=== PATIENT | female | born 1990 | race African-American/Black ===

== ENCOUNTER → 2018-04-11 15:58 | Outpatient (CLI) | payer OTHER, SELFPAY ==
--- NOTE | 2018-04-11 16:06 | DI.US.S_ITS ---
PROCEDURE: US OB <= 14 WEEKS FETUS INDICATIONS: SIZE AND DATES OUTSIDE/PRIOR DATING DATA: Last menstrual period (LMP): 01/20/18. LMP-based estimated date of delivery (TERESA): 10/27/18. First dating scan (date and location): 04/11/18. Estimated date of delivery (TERESA) from first dating scan: 10/15/18. TECHNIQUE: Real-time scanning was performed of the fetus and maternal pelvic organs, with image documentation. Endovaginal scanning was also performed to better visualize the fetus and maternal ovaries. COMPARISON: None. FINDINGS: Embryo: Ammon-rump length measures 5.1 cm corresponding to 11 weeks 6 days. Heart rate measures 165 beats per minute. Measurement variability in dating: +/- 4 weeks by LMP, +/- 7 days by mean sac diameter (use before 6 weeks gestation if crown-rump length not able to be measured), +/- 5 days by crown-rump length (up to 8 weeks 6 days gestation), +/- 7 days by crown-rump length (up to 13 weeks 6 days gestation). Maternal organs: Ovaries within normal limits. Limited images through the kidneys demonstrate no hydronephrosis. IMPRESSION: A single living intrauterine with the estimated gestational age at 11 weeks 6 days corresponding to ultrasound TERESA 10/15/2018. Dictated by: Josesito Vasquez [facility] Interpreted: Leslie Reyes MD on 04/11/2018 at 16:57 Approved by: Leslie Reyes M.D. on 04/12/2018 at 9:10
== END ==
PROVIDERS: Visit Provider Family Medicine
DX: Z34.91 Encounter for supervision of normal pregnancy, unspecified, first trimester (principal); Z3A.11 11 weeks gestation of pregnancy
CPT/HCPCS: 76801

== ENCOUNTER → 2018-06-04 12:41 | Outpatient (CLI) | payer OTHER, SELFPAY ==
--- NOTE | 2018-06-04 | DI.US.S_ITS ---
PROCEDURE: US OB >= 14 WEEKS FETUS INDICATIONS: ANATOMY SCAN OUTSIDE/PRIOR DATING DATA: Last menstrual period (LMP): 01/20/18. LMP-based estimated date of delivery (TERESA): 10/27/18. First dating scan (date and location): 04/11/18. Estimated date of delivery (TERESA) from first dating scan: 10/25/18. TECHNIQUE: Real-time scanning was performed of the fetus, with image documentation and biometric measurements. Endovaginal scanning: No COMPARISON: [facility], OB <= 14 WEEKS FETUS, 04/11/2018, 16:32. FINDINGS: General: A single living intrauterine gestation is present. Presentation: Vertex. Placenta: Placental position is posterior, without previa. Amniotic fluid index: 10.1 cm, normal range is 5-24 cm. heart rate: 152 beats per minute. Maternal cervical canal: 4.1 cm long. Normal lower limit is 2.5 cm. biometrics: Biparietal diameter: 20 weeks 2 days Head circumference: 20 weeks 1 day Abdominal circumference: 21 weeks 4 days Femur length: 19 weeks 2 days Estimated gestational age from initial scan: 19 weeks 4 days Composite gestational age from present scan: 20 weeks 2 days Estimated weight and percentile: 355 g; 90th percentile Measurement variability for biometric dating: +/- 7 days from 14 weeks to 15 weeks 6 days gestation, +/- 10 days from 16 weeks to 21 weeks 6 days gestation, +/- 2 weeks from 22 weeks to 27 weeks 6 days gestation, +/- 3 weeks for 28 weeks gestation or later. weight reference: 4500 g or EFW >90/95% is considered macrosomia or large for gestational age. EFW <10% is small for gestational age. EFW 5% or less is considered intra-uterine growth restriction. Anatomic survey: Neuro: Ventricles are non-dilated at less than 10 mm. Cisterna magna is normal at 3-11 mm. Cerebellum is normal in size and morphology. Nuchal skin fold: Normal at less than 6 mm between 14-21 weeks gestational age. Face: Nose and lips, facial profile are normal. Spine: No evidence for spina bifida. Heart: 4-chambered heart is present, with normal ventricular outflow tracts. Diaphragm: Diaphragm is intact. Stomach: Left-sided stomach is present. Kidneys: No hydronephrosis. Normal is less than 5 mm in 2nd trimester, less than 7 mm in 3rd trimester. Cord: 2-vessel cord has orthotopic insertion. Bladder: Normal in size. Extremities: All 4 extremities identified. IMPRESSION: 1. Single living IUP we demonstrated; the interval growth is normal. 2. Two-vessel cord is present; otherwise normal anatomic survey. Dictated by: Josesito Vasquez [facility] Interpreted: Leslie Reyes MD on 06/04/2018 at 15:51 Approved by: Leslie Reyes M.D. on 06/04/2018 at 18:40
== END ==
PROVIDERS: PCP Family Medicine; Visit Provider Family Medicine
DX: Z36.89 Encounter for other specified antenatal screening (principal); Z3A.20 20 weeks gestation of pregnancy
CPT/HCPCS: 76811

== ENCOUNTER → 2018-09-10 11:37 | Outpatient (CLI) | payer OTHER, SELFPAY ==
--- NOTE | 2018-09-10 | DI.US.S_ITS ---
PROCEDURE: US OB LIMITED INDICATIONS: SIZE GREATER THAN DATES OUTSIDE/PRIOR DATING DATA: Last menstrual period (LMP): 01/20/18. LMP-based estimated date of delivery (TERESA): 10/27/18. First dating scan (date and location): 04/11/18. Estimated date of delivery (TERESA) from first dating scan: 10/25/18. TECHNIQUE: Real-time scanning was performed of the fetus, with image documentation and biometric measurements. COMPARISON: [facility], OB <= 14 WEEKS FETUS, 04/11/2018, 16:32. [facility], OB >= 14 WEEKS FETUS, 06/04/2018, 13:13. FINDINGS: General: A single living intrauterine gestation is present. Presentation: Cephalic Placenta: Placental position is posterior Amniotic fluid index: 18.8 cm, normal range is 5-24 cm. heart rate: 133 beats per minute. Maternal cervical canal: 4.2 cm long. biometrics: Biparietal diameter: 8.8 cm, 35 weeks 4 days Head circumference: 31.6 cm, 35 weeks 4 days Abdominal circumference: 32.0 cm, 36 weeks 0 days Femur length: 7.0 cm, 35 weeks 5 days Estimated gestational age from initial scan: 33 weeks 4 days Composite gestational age from present scan: 35 weeks 5 days Estimated weight and percentile: 2768 g (95th percentile) Measurement variability for biometric dating: +/- 7 days from 14 weeks to 15 weeks 6 days gestation, +/- 10 days from 16 weeks to 21 weeks 6 days gestation, +/- 2 weeks from 22 weeks to 27 weeks 6 days gestation, +/- 3 weeks for 28 weeks gestation or later. weight reference: 4500 g or EFW >90/95% is considered macrosomia or large for gestational age. EFW <10% is small for gestational age. EFW 5% or less is considered intra-uterine growth restriction. Other: Not applicable. IMPRESSION: 1. Single live intrauterine at 35 weeks 5 days is discordant with the dates from the previous ultrasound dated 10 days and discordant from the initial ultrasound by approximately 15 days. 2. Estimated weight is within the 95th percentile. Please correlate clinically for possible developing macrosomia. Dictated by: Mike Post M.D. on 09/10/2018 at 14:53 Approved by: Mike Post M.D. on 09/10/2018 at 14:56
== END ==
PROVIDERS: PCP Family Medicine; Visit Provider Family Medicine
DX: O36.63X0 Maternal care for excessive fetal growth, third trimester, not applicable or unspecified (principal); Z3A.35 35 weeks gestation of pregnancy
CPT/HCPCS: 76815

== ENCOUNTER 2018-09-24 12:51 | Outpatient (CLI) | payer OTHER, SELFPAY | END 2018-09-24 13:30 | disposition home or self-care (01) | LOC: OB 09-25 14:07 | PROVIDERS: PCP Family Medicine; Visit Provider Family Medicine | DX: Z34.83 Encounter for supervision of other normal pregnancy, third trimester (principal); Z3A.35 35 weeks gestation of pregnancy | CPT/HCPCS: 59025; 87081; G0378; G0379 ==

== ENCOUNTER → 2018-09-24 17:49 | Outpatient (ROUT) | payer OTHER, SELFPAY | PROVIDERS: PCP Family Medicine; Visit Provider Family Medicine | DX: Z34.83 Encounter for supervision of other normal pregnancy, third trimester (principal) | CPT/HCPCS: 87081 ==

== ENCOUNTER 2018-10-02 12:51 | Outpatient (CLI) | payer OTHER, SELFPAY | END 2018-10-02 13:24 | disposition home or self-care (01) | LOC: LABOR 13:26 → OB 10-08 12:06 | PROVIDERS: Family Provider Family Medicine; PCP Family Medicine; Visit Provider Family Medicine | DX: O69.89X0 Labor and delivery complicated by other cord complications, not applicable or unspecified (principal); Z3A.36 36 weeks gestation of pregnancy | CPT/HCPCS: 59025; G0378; G0379 ==

== ENCOUNTER 2018-10-08 12:52 | Outpatient (CLI) | payer OTHER, SELFPAY | END 2018-10-08 13:39 | disposition home or self-care (01) | LOC: LABOR 13:35 → OB 10-15 08:09 | PROVIDERS: Family Provider Family Medicine; PCP Family Medicine; Visit Provider Family Medicine | DX: O62.2 Other uterine inertia (principal); Z3A.38 38 weeks gestation of pregnancy | CPT/HCPCS: 59025; G0378; G0379 ==

== ENCOUNTER → 2018-10-15 12:02 | Outpatient (CLI) | payer OTHER, SELFPAY ==
--- NOTE | 2018-10-15 12:03 | DI.US.S_ITS ---
PROCEDURE: US OB LIMITED INDICATIONS: LGA OUTSIDE/PRIOR DATING DATA: Last menstrual period (LMP): 01/20/18. LMP-based estimated date of delivery (TERESA): 10/27/18. First dating scan (date and location): 04/11/18. Estimated date of delivery (TERESA) from first dating scan: 10/25/18. TECHNIQUE: Real-time scanning was performed of the fetus, with image documentation and biometric measurements. COMPARISON: [facility], OB >= 14 WEEKS FETUS, 06/04/2018, 13:13. [facility], OB <= 14 WEEKS FETUS, 04/11/2018, 16:32. [facility], OB LIMITED, 09/10/2018, 12:30. FINDINGS: General: A single live intrauterine gestation is present. Presentation: Vertex. Placenta: Placental position is fundal, without previa. Amniotic fluid index: 8.7 cm, normal range is 5-24 cm. heart rate: 131 beats per minute. Maternal cervical canal: Not seen. biometrics: Biparietal diameter: 9.6 cm equals 39 weeks 0 days Head circumference: 34.8 cm equals 40 weeks 2 days Abdominal circumference: 35.4 cm equals 39 weeks 2 days Femur length: 7.6 cm equals 39 weeks 0 days Estimated gestational age from initial scan: 38 weeks 4 days Composite gestational age from present scan: 39 weeks 3 days Estimated weight and percentile: 3746 g, 82nd percentile Measurement variability for biometric dating: +/- 7 days from 14 weeks to 15 weeks 6 days gestation, +/- 10 days from 16 weeks to 21 weeks 6 days gestation, +/- 2 weeks from 22 weeks to 27 weeks 6 days gestation, +/- 3 weeks for 28 weeks gestation or later. weight reference: 4500 g or EFW >90/95% is considered macrosomia or large for gestational age. EFW <10% is small for gestational age. EFW 5% or less is considered intra-uterine growth restriction. Other: Not applicable. IMPRESSION: Normal interval growth when compared to the prior ultrasound examination. The fetus is estimated to weigh 3746 g, 82nd percentile. Dictated by: Everette Warner M.D. on 10/15/2018 at 12:07 Approved by: Everette Warner M.D. on 10/15/2018 at 12:09
== END ==
PROVIDERS: Family Provider Family Medicine; PCP Family Medicine; Visit Provider Family Medicine
DX: O26.843 Uterine size-date discrepancy, third trimester (principal)
CPT/HCPCS: 76815

== ENCOUNTER 2018-10-15 12:04 | Outpatient (CLI) | payer OTHER, SELFPAY | END 2018-10-15 13:25 | disposition home or self-care (01) | LOC: OB 10-17 15:12 | PROVIDERS: Family Provider Family Medicine; PCP Family Medicine; Visit Provider Family Medicine | DX: O43.893 Other placental disorders, third trimester (principal); Z3A.38 38 weeks gestation of pregnancy | CPT/HCPCS: 59025; 76815; G0378; G0379 ==

== ENCOUNTER 2018-10-21 12:43 | Outpatient (CLI) | payer OTHER, SELFPAY | END 2018-10-21 13:31 | disposition home or self-care (01) | LOC: LABOR 13:26 → OB 10-22 14:36 | PROVIDERS: Family Provider Family Medicine; PCP Family Medicine; Visit Provider Family Medicine | DX: O43.893 Other placental disorders, third trimester (principal); Z3A.39 39 weeks gestation of pregnancy | CPT/HCPCS: 59025; G0378; G0379 ==

== ENCOUNTER 2018-10-25 09:47 | Outpatient (CLI) | payer OTHER, SELFPAY ==
--- NOTE | 2018-10-25 10:03 | DI.US.S_ITS ---
PROCEDURE: US OB LIMITED INDICATIONS: POST DATES OUTSIDE/PRIOR DATING DATA: Last menstrual period (LMP): 01/23/2018. LMP-based estimated date of delivery (TERESA): 10/27/2018. First dating scan (date and location): 04/11/2018. Estimated date of delivery (TERESA) from first dating scan: 10/25/2018. TECHNIQUE: Real-time scanning was performed of the fetus, with image documentation and biometric measurements. Endovaginal scanning: Not performed COMPARISON: [facility], OB <= 14 WEEKS FETUS, 04/11/2018, 16:32. [facility], OB LIMITED, 09/10/2018, 12:30. [facility] OB >= 14 WEEKS FETUS, 06/04/2018, 13:13. [facility], OB LIMITED, 10/15/2018, 12:25. FINDINGS: General: A single living intrauterine gestation is present. Presentation: Vertex. Placenta: Placental position is fundal, without previa. Amniotic fluid index: 11 cm, normal range is 5-24 cm. 5.1 cm for the largest pocket/ heart rate: 137 beats per minute. Maternal cervical canal: Not visualized. biometrics: Estimated gestational age from initial scan: 40 weeks 0 day. IMPRESSION: 1. A single living intrauterine gestation with an estimated gestational age of 40 weeks 0 day, corresponding to ultrasound TERESA 10/25/2018-initial ultrasound. 2. HEATH 11 cm with the largest pocket 5.1 cm. Dictated by: Leslie Reyes M.D. on 10/25/2018 at 11:50 Approved by: Leslie Reyes M.D. on 10/25/2018 at 11:55
== END 2018-10-25 11:22 | disposition home or self-care (01) ==
LOC: LABOR 10:18 → OB 10-28 14:53
PROVIDERS: PCP Family Medicine; Visit Provider Family Medicine
DX: O48.0 Post-term pregnancy (principal); Z3A.40 40 weeks gestation of pregnancy
CPT/HCPCS: 59025; 76815; G0378; G0379

== ENCOUNTER 2018-10-27 18:24 | Observation (INO) | payer OTHER, SELFPAY ==
[2018-10-27 19:46] VITALS: BP 135/80
[2018-10-27] MEDS: LACTATED RINGERS 1,000 ML 100 ML IV (19:57)
[2018-10-27 20:41] LABS: Add Manual Diff / Slide Review NO; Basophils Absolute Auto 0 /uL (0-100); Basophils Percent Auto 0.3 % (0-2); Eosinophils Absolute Auto 0 /uL (0-450); Eosinophils Percent Auto 0.5 % (2-4); Hematocrit 36.1 % (36-46); Hemoglobin 12.1 g/dL (12.0-16.0); Lymphocytes Absolute Auto 2700 /uL (1100-4500); Lymphocytes Percent Auto 37.1 % (25-40); Mean Corpuscular HGB Conc 33.6 % (30-36); Mean Corpuscular Hemoglobin 31.5 PG (26-34); Mean Corpuscular Volume 93.6 fL (80-100); Monocytes Absolute Auto 700 /uL (0-900); Monocytes Percent Auto 9.9 % (3-14); Neutrophils Absolute Auto 3900 /uL (1500-7000); Neutrophils Percent Auto 52.2 % (50-75); Platelet Count 343 X10^3/uL (150-400); Red Blood Cell Count 3.86 X10^6/uL (4.0-5.2); Red Cell Distribution Width 15.2 % (11.6-14.8); White Blood Cell Count 7.4 X10^3/uL (4.5-11.0)
== END 2018-10-27 22:00 | disposition home or self-care (01) ==
PROVIDERS: Admitting Provider Family Medicine; PCP Family Medicine; Visit Provider Family Medicine
DX: O26.893 Other specified pregnancy related conditions, third trimester (principal); Z3A.40 40 weeks gestation of pregnancy
CPT/HCPCS: 59050; 85025; 86850; 86900; 86901; 96360; G0378; G0379

== ENCOUNTER 2018-10-28 06:18 | Inpatient (IN) | payer OTHER, SELFPAY ==
[2018-10-28 06:42] VITALS: BP 139/72
[2018-10-28 06:51] LABS: Add Manual Diff / Slide Review NO; Basophils Absolute Auto 0 /uL (0-100); Basophils Percent Auto 0.5 % (0-2); Eosinophils Absolute Auto 0 /uL (0-450); Eosinophils Percent Auto 0.7 % (2-4); Hematocrit 35.9 % (36-46); Hemoglobin 12.6 g/dL (12.0-16.0); Lymphocytes Absolute Auto 2800 /uL (1100-4500); Lymphocytes Percent Auto 40.1 % (25-40); Mean Corpuscular HGB Conc 35.1 % (30-36); Mean Corpuscular Hemoglobin 32.5 PG (26-34); Mean Corpuscular Volume 92.7 fL (80-100); Monocytes Absolute Auto 600 /uL (0-900); Monocytes Percent Auto 8.8 % (3-14); Neutrophils Absolute Auto 3500 /uL (1500-7000); Neutrophils Percent Auto 49.9 % (50-75); Platelet Count 317 X10^3/uL (150-400); Red Blood Cell Count 3.87 X10^6/uL (4.0-5.2); Red Cell Distribution Width 15.2 % (11.6-14.8); White Blood Cell Count 7.1 X10^3/uL (4.5-11.0)
[2018-10-28] MEDS: LACTATED RINGERS 1,000 ML 100 ML IV (07:03)
[2018-10-28] MEDS: OXYTOCIN PREMIX 30 UNIT/500 ML PLAST..BAG IV (07:03)
--- NOTE | 2018-10-28 13:08 | PM.OBPNLAB ---
Date/Time Date Patient Seen: 10/28/18 Time Patient Seen: 13:08 Pain Control Pain control: tolerating well Pelvic Exam Dilation (cm): 4 Effacement (%): 80 station: 0 Amniotic membrane status: Ruptured Comments: 822 AROM, clear fluid Contractions Contractions on admission: regular Monitor mode: External Pitocin rate (mU/min): 17 Contraction frequency (min): 4 Contraction duration (min): 30 Contraction pattern: Irregular Contraction phase: Resting Contraction intensity: Moderate Status status: Category l Heart Rate Baseline: 130 Monitor Accelerations: Present Monitor Decelerations: Variable Monitor Variability: Moderate Assessment and Plan Assessment: active labor Plan: continuous present management Comments: OP/OT per ultrasound positional changes
--- NOTE | 2018-10-28 17:25 | PM.OBPNLAB ---
Pelvic Exam Dilation (cm): 4 Effacement (%): 80 station: 0 Amniotic membrane status: Ruptured Contractions Monitor mode: External Contraction frequency (min): 4 Contraction pattern: Irregular Contraction phase: Resting Contraction intensity: Moderate Status status: Category l
--- NOTE | 2018-10-28 17:26 | PM.OBPNLAB ---
Date/Time Date Patient Seen: 10/28/18 Time Patient Seen: 17:26 Pain Control Pain control: epidural Comments: working well. placed at 230 Pelvic Exam Dilation (cm): 10 Effacement (%): 100 station: +1 Amniotic membrane status: Ruptured Comments: bloody show Contractions Contractions on admission: regular Monitor mode: External Pitocin rate (mU/min): 19 Contraction frequency (min): 4 Contraction pattern: Regular Contraction phase: Resting Contraction intensity: Moderate Status status: Category l Heart Rate Baseline: 140 Monitor Accelerations: Present Monitor Decelerations: Variable Monitor Variability: Moderate Assessment and Plan Assessment: active labor Plan: continuous present management Comments: begin pushing
--- NOTE | 2018-10-28 19:28 | P.PCNOB_ITS ---
Delivery date: 10/28/18 Intrapartal events: None Cervical ripening method: none Induction method: per pitocin protocol Delivery augmentation: rupture of membranes Delivery monitor: external FHT and external uterine Route of delivery: L&D Laceration Description: Vaginal - 1st Degree Delivery repair: chromic Estimated blood loss (mL): 270 Anesthesia type: Epidural Complications: none Narrative: Identifying data: 28-year-old at 40 and 3 7 weeks estimated gestational age based on an EDC of 10/25/2018 based on 1st trimester ultrasound and LMP is brought to Labor and delivery for Pitocin induction due to presence of a 2 vessel cord. Patient came on October 27 for Cytotec cervical ripening but Chavez score was favorable for induction so she was sent home and brought back the next day. Her was otherwise uncomplicated other than suspected macrosomia and 2 vessel cord. She was monitored with and STs once weekly and fluid levels were monitored. She did not have testing because her insurance did not cover this. She is GBS negative and Rh positive and received her Tdap and her flu shot. Stage I and lasted 3 hours and 30 minutes Patient was 2-3 cm dilated 75% effaced and -1 station on presentation. Pitocin was started. Maximum Pitocin with 17 milliunits. Artificial rupture membranes was done at 8:23 a.m. which was 9 hours and 56 minutes prior to delivery. There was clear fluid. There was approximately 3 vaginal exams before she became complete. External tocometer was used throughout this phase. Initially ultrasound was performed and baby was right occiput posterior or occiput transverse. Category 1 tracing throughout stage I. heart monitor was in 140s with accelerations and moderate variability with only occasional mild variable deceleration. There was some coupling of contractions. Patient was placed in positional changes to help with this. Patient received an epidural at 2:30 p.m. that provided excellent analgesia throughout this stage. Patient was placed in pain at ball position and rotated after epidural placed. She was noted to be 4-1/2 to 5 cm and 100% effaced at 3:15 p.m. and then when I examined her at 3:33 p.m. she was complete with baby at +1 station. Stage II: Lasted 44 minutes Patient began pushing and was a very excellent pusher with effective pushing bring the baby down. External tocometer was used. Patient was able to feel the contractions but not have pain and not have significant perineal pain. Contractions were every 2-3 minutes. External heart monitor was used throughout this stage showing category 1 tracing with baseline 130s with acce lerations moderate variability and occasional mild variable deceleration. There was significant amount of bloody show. Fluid had continued to be clear. Patient brought the baby's head down P and allowed baby to sit on the perineum. Baby was delivered in JERZY presentation and a nuchal cord was noted. This was too tight to sleep over the head and so was clamped and cut on the perineum. Anterior and posterior shoulders were delivered and then with some difficulty the abdomen was delivered. Baby was placed on mom's chest. Baby was vigorous. Baby's Apgars were 9 at 1 minute and 9 at 5 minutes. Stage III: Lasted 3 minutes Normal spontaneous vaginal delivery of an intact minimally calcified placenta. There is central cord insertion. There was a 2 vessel cord with 1 artery and 1 vein as expected. Amniotic membranes were intact and uterus was firm. Pitocin was run in after placenta delivered. There were no vaginal sidewall tears. Cervix was at the introitus. This was easily pushed back. There were no cervical lacerations. There was a very mild non bleeding periurethral skid siri that was not repaired. There is a very small laceration 1st degree vaginal just inside the vagina that was repaired with 3 0 chromic in a usual fashion. Estimated blood loss was 270 cc Epidural was discontinued. At the time this dictation both mom and baby are in stable condition Plan for aftercare: Routine care
--- NOTE | 2018-10-28 19:28 | PM.OBHP.1 ---
OB HPI History of Present Condition Chief complaint: EVALUATION OF LABOR Narrative: Adele Marcos is a 28 year old female who presents to Labor and delivery for scheduled induction for 2 vessel cord and being term. She is 40 and 3 7 weeks estimated gestational age. Patient's was complicated by a 2 vessel cord and no other problems. She had a total weight gain of 57 lb. Blood pressures were in the 110-120 6/60 2-74 Serology O positive, antibody screen negative, rubella immune Group B strep is -528 19, glucose tolerance test was 122, hemoglobin A1c was done due to the size of baby and this was normal. Chlamydia gonorrhea negative hemoglobin 11.5 hepatitis-C hepatitis B syphilis all negative patient received Tdap 08/06/2018 and flu shot 05/06/2018 Past Ob history: This is her 1st Past medical history: Unremarkable Current medications: vitamins Allergies: No known drug allergies Past surgical history: Unremarkable Healthy behavior: Does not use alcohol, tobacco or recreational drugs Social history: Patient is . 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 Her is in the . They have 2 dogs. Family history: Unremarkable Evaluation Evaluation Laboratory results: Laboratory Tests 10/28/18 10/28/18 06:40 06:40 WBC 7.1 RBC 3.87 L Hgb 12.6 Hct 35.9 L MCV 92.7 MCH 32.5 MCHC 35.1 RDW 15.2 H Plt Count 317 Neut % (Auto) 49.9 L Lymph % (Auto) 40.1 H Yancey % (Auto) 8.8 Eos % (Auto) 0.7 L Baso % (Auto) 0.5 Neut # (Auto) 3500 Lymph # (Auto) 2800 Yancey # (Auto) 600 Eos # (Auto) 0 Baso # (Auto) 0 Blood Type O Positive Antibody Screen Negative [facility] Social History Smoking Status: Never smoker Social History Smoking Status: Never smoker Meds Home Medications Medication Instructions Recorded Confirmed Type No Known Home Medications 10/27/18 10/28/18 History Allergies Allergy/AdvReac Type Severity Reaction Status Date / Time No Known Drug Allergies Allergy Verified 10/27/18 19:31 Review of Systems Review of Systems No bleeding, no leaking, no abdominal pain or headaches. Patient is having regular contractions but they are not significantly painful All systems reviewed & are unremarkable except as noted in HPI and below Exam Narrative Exam Narrative: Afebrile vital signs are stable Eeg and he unremarkable Neck is supple without adenopathy Chest clear to auscultation without wheezes rhonchi or crackles For: Regular rate and rhythm without murmur Abdomen: Positive bowel sounds, soft, nontender, vertex fetus with estimated weight 8-1/2 to 9 lb Extremities: No edema, DTRs are intact Objective Labs Result Diagrams: 10/28/18 06:40 Labs: Laboratory Results - last 24 hr 10/28/18 10/28/18 06:40 06:40 WBC 7.1 RBC 3.87 L Hgb 12.6 Hct 35.9 L MCV 92.7 MCH 32.5 MCHC 35.1 RDW 15.2 H Plt Count 317 Neut % (Auto) 49.9 L Lymph % (Auto) 40.1 H Yancey % (Auto) 8.8 Eos % (Auto) 0.7 L Baso % (Auto) 0.5 Neut # (Auto) 3500 Lymph # (Auto) 2800 Yancey # (Auto) 600 Eos # (Auto) 0 Baso # (Auto) 0 Blood Type O Positive Antibody Screen Negative Assessment and Plan Assessment and Plan Assessment and Plan narrative: 28-year-old at term, 40 and 3 7 weeks estimated gestational age with a 2 vessel cord and suspected large baby. Will proceed with artificial rupture membranes and continue with Pitocin and epidural if request. GBS negative O positive Glucose tolerance test 122 S post Tdap Expectant management
--- NOTE | 2018-10-28 19:32 | P.HPOB_ITS ---
OB HPI History of Present Condition Chief complaint: EVALUATION OF LABOR Narrative: Adele Marcos is a 28 year old female who presents to Labor and delivery for scheduled induction for 2 vessel cord and being term. She is 40 and 3 7 weeks estimated gestational age. Patient's was complicated by a 2 vessel cord and no other problems. She had a total weight gain of 57 lb. Blood pressures were in the 110-120 6/60 2-74 Serology O positive, antibody screen negative, rubella immune Group B strep is -528 19, glucose tolerance test was 122, hemoglobin A1c was done due to the size of baby and this was normal. Chlamydia gonorrhea negative hemoglobin 11.5 hepatitis-C hepatitis B syphilis all negative patient received Tdap 08/06/2018 and flu shot 05/06/2018 Past Ob history: This is her 1st Past medical history: Unremarkable Current medications: vitamins Allergies: No known drug allergies Past surgical history: Unremarkable Healthy behavior: Does not use alcohol, tobacco or recreational drugs Social history: Patient is . 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 Her is in the . They have 2 dogs. Family history: Unremarkable Evaluation Evaluation Laboratory results: Laboratory Tests 10/28/18 10/28/18 06:40 06:40 WBC 7.1 RBC 3.87 L Hgb 12.6 Hct 35.9 L MCV 92.7 MCH 32.5 MCHC 35.1 RDW 15.2 H Plt Count 317 Neut % (Auto) 49.9 L Lymph % (Auto) 40.1 H [place] % (Auto) 8.8 Eos % (Auto) 0.7 L Baso % (Auto) 0.5 Neut # (Auto) 3500 Lymph # (Auto) 2800 [place] # (Auto) 600 Eos # (Auto) 0 Baso # (Auto) 0 Blood Type O Positive Antibody Screen Negative [facility] Social History Smoking Status: Never smoker Social History Smoking Status: Never smoker Meds Home Medications Medication Instructions Recorded Confirmed Type No Known Home Medications 10/27/18 10/28/18 History Allergies Allergy/AdvReac Type Severity Reaction Status Date / Time No Known Drug Allergies Allergy Verified 10/27/18 19:31 Review of Systems Review of Systems No bleeding, no leaking, no abdominal pain or headaches. Patient is having regular contractions but they are not significantly painful All systems reviewed & are unremarkable except as noted in HPI and below Exam Narrative Exam Narrative: Afebrile vital signs are stable Eeg and he unremarkable Neck is supple without adenopathy Chest clear to auscultation without wheezes rhonchi or crackles For: Regular rate and rhythm without murmur Abdomen: Positive bowel sounds, soft, nontender, vertex fetus with estimated weight 8-1/2 to 9 lb Extremities: No edema, DTRs are intact Objective Labs Result Diagrams: 10/28/18 06:40 Labs: Laboratory Results - last 24 hr 10/28/18 10/28/18 06:40 06:40 WBC 7.1 RBC 3.87 L Hgb 12.6 Hct 35.9 L MCV 92.7 MCH 32.5 MCHC 35.1 RDW 15.2 H Plt Count 317 Neut % (Auto) 49.9 L Lymph % (Auto) 40.1 H [place] % (Auto) 8.8 Eos % (Auto) 0.7 L Baso % (Auto) 0.5 Neut # (Auto) 3500 Lymph # (Auto) 2800 [place] # (Auto) 600 Eos # (Auto) 0 Baso # (Auto) 0 Blood Type O Positive Antibody Screen Negative Assessment and Plan Assessment and Plan Assessment and Plan narrative: 28-year-old at term, 40 and 3 7 weeks estimated gestational age with a 2 vessel cord and suspected large baby. Will proceed with artificial rupture membranes and continue with Pitocin and epidural if request. GBS negative O positive Glucose tolerance test 122 S post Tdap Expectant management
[2018-10-29 06:53] LABS: Hematocrit 35.6 % (36-46); Hemoglobin 11.9 g/dL (12.0-16.0)
[2018-10-29] MEDS: PRENATAL VIT,CALC/IRON/FOLIC 1 TABLET 1 TAB PO (08:32)
[2018-10-29] MEDS: DOCUSATE 250 MG CAPSULE PO (08:32)
--- NOTE | 2018-10-29 13:36 | P.DS_ITS ---
Discharge Providers Date of admission: 10/28/18 06:18 Discharge Date: 10/29/18 Primary care physician: Anika Jean MD Consults: 10/28/18 19:12 Consult to Loss Prevention Investigator Routine Comment: Discharge provider: Anika Jean MD Summary Time Spent with Patient Total time spent providing and/or coordinating discharge services: 30 minutes Patient underwent induction due to 2 vessel cord at 40 weeks and 3 7 days gestation. Patient had an unremarkable other than complication and 2 vessel cord. Patient had unremarkable normal spontaneous vaginal delivery. Patient did well . There were no complications. She was discharged home on day 1.. Follow up in the clinic in 2 weeks. Discharge medications vitamins, Colace as needed, Motrin as needed routine discharge instructions discussed. Discussed signs symptoms of infection, bleeding, breast feeding Objective Labs Result Diagrams: 10/29/18 06:34 Labs: Laboratory Results - last 24 hr 10/29/18 06:34 Hgb 11.9 L Hct 35.6 L Exam Vital Signs (past 8 hours): Alert and oriented no apparent distress. Some elevated blood pressures last night but have been normal in 20 over 70s 130/82 today. HEENT is unremarkable Chest clear to auscultation without wheezes rhonchi or crackles Cor: Regular rate and rhythm without any murmur Abdomen: Positive bowel sounds, soft, nontender, uterus firm and well below the umbilicus with no tenderness Extremities: No edema, DTRs trace bilaterally at the patella Discharge Plan Discharge Plan Patient Disposition: Home Discharge Med Rec/Prescriptions Prescriptions: New ibuprofen 600 mg Tablet 600 mg PO Q6HR PRN (Reason: Pain, Mild (1-3)) Qty: 30 RF: 0 docusate sodium 250 mg Capsule 250 mg PO DAILY PRN (Reason: constipation) Qty: 30 RF: 0 No Action No Known Home Medications RF: 0 Follow up/Referrals: Anika Jean MD [Primary Care Provider] - Provider Discharge Instructions Diet: Diet as Tolerated Diet comment: S tolerated Activity: Pelvic rest, no heavy lifting Discharge Data Primary Care Provider: Anika Jean Attending Provider: Anika Jean Admit Date/Time: 10/28/18 06:18
[2018-10-29 14:26] VITALS: BP 132/82; PULSE 98; RESP 16; TEMP 36.6
[2018-10-29] MEDS: IBUPROFEN 600 MG TABLET PO (15:32)
== END 2018-10-29 16:20 | disposition home or self-care (01) | DRG 807 ==
PROVIDERS: Admitting Provider Family Medicine; Family Provider Family Medicine; PCP Family Medicine; Visit Provider Family Medicine
DX: O43.893 Other placental disorders, third trimester (principal); Z37.0 Single live birth; Z3A.40 40 weeks gestation of pregnancy; O69.81X0 Labor and delivery complicated by cord around neck, without compression, not applicable or unspecified; O70.0 First degree perineal laceration during delivery
CPT/HCPCS: 36415; 59050; 85014; 85018; 85025; 86850; 86900; 86901; G0379; J2590

== ENCOUNTER → 2021-12-20 10:47 | Outpatient (CLI) | payer OTHER, SELFPAY ==
--- NOTE | 2021-12-20 | DI.US.S_ITS ---
PROCEDURE: US OB <= 14 WEEKS FETUS INDICATIONS: SIZE AND DATES OUTSIDE/PRIOR DATING DATA: Last menstrual period (LMP): 10/15/2021 LMP-based estimated date of delivery (TERESA): 07/22/2022. First dating scan (date and location): 12/20/2021. Estimated date of delivery (TERESA) from first dating scan: 07/25/2022. TECHNIQUE: Real-time scanning was performed of the fetus and maternal pelvic organs, with image documentation. Endovaginal scanning was also performed to better visualize the fetus and maternal ovaries. COMPARISON: [facility], , OB <= 14 WEEKS FETUS, 04/11/2018, 16:32. FINDINGS: Single live intrauterine consists of a gestational sac containing a yolk sac and pole measuring 2.3 cm in length corresponding with a 9 week 0 day gestation. heart rate 173 beats per minute. No subchorionic bleed. Small right ovarian corpus luteum cyst. Left ovary unremarkable. No free fluid. IMPRESSION: 1. Single live intrauterine corresponds with a 9 week 0 day gestation. Approved by: Vivek Jones M.D. on 12/20/2021 at 11:06
== END ==
PROVIDERS: Family Provider Family Medicine; PCP Family Medicine; Referring Provider Family Medicine; Visit Provider Family Medicine
DX: Z36.87 Encounter for antenatal screening for uncertain dates (principal); Z3A.09 9 weeks gestation of pregnancy
CPT/HCPCS: 76801; 76817

== ENCOUNTER → 2022-02-13 13:44 | Outpatient (CLI) | payer OTHER, SELFPAY ==
[2022-02-13 17:36] LABS: Appearance Urine UA CLEAR; Bilirubin Urine UA NEGATIVE (NEGATIVE); Color Urine UA YELLOW; Glucose Urine UA NEGATIVE (Negative); Ketones Urine UA NEGATIVE (NEGATIVE); Leukocyte Esterase Urine UA NEGATIVE (NEGATIVE); Nitrite Urine UA NEGATIVE (Negative); Occult Blood Urine UA 1+ (Negative); Protein Urine UA NEGATIVE (Negative); Specific Gravity Urine UA <=1.005 (1.000-1.035); Urobilinogen Urine UA 0.2 E.U./dL (0.2)
[2022-02-13 17:40] LABS: RBC Urine 0-1/HPF (0-5/HPF); WBC Urine None Seen (0-5/HPF)
[2022-02-13 17:41] LABS: Amorphous Sediment Urine 1+; Bacteria Urine None Seen
== END ==
PROVIDERS: Family Provider Family Medicine; PCP Family Medicine; Visit Provider Family Medicine
DX: Z34.92 Encounter for supervision of normal pregnancy, unspecified, second trimester (principal); Z3A.16 16 weeks gestation of pregnancy
CPT/HCPCS: 81001; 87086

== ENCOUNTER → 2022-03-17 08:48 | Outpatient (CLI) | payer OTHER, SELFPAY ==
--- NOTE | 2022-03-17 08:49 | DI.US.S_ITS ---
PROCEDURE: US OB >= 14 WEEKS FETUS INDICATIONS: ANATOMY OUTSIDE/PRIOR DATING DATA: Last menstrual period (LMP): 10/15/2021. LMP-based estimated date of delivery (TERESA): 07/22/2022 First dating scan (date and location): 12/20/2021 Estimated date of delivery (TERESA) from first dating scan: 07/25/2022. The calculations are made using the working TERESA of 07/25/2022. TECHNIQUE: Real-time scanning was performed of the fetus, with image documentation and biometric measurements. Endovaginal scanning: Not indicated COMPARISON: [facility], OB >= 14 WEEKS FETUS, 06/04/2018, 13:13. FINDINGS: General: A single living intrauterine gestation is present. Presentation: Vertex Placenta: Placental position is right fundal, without previa. Amniotic fluid index: 16.6 cm, normal range is 5-24 cm. Single deepest vertical pocket is 6.5 cm. heart rate: 144 beats per minute. Maternal cervical canal: 4.2 cm long. Normal lower limit is 2.5 cm. biometrics: Biparietal diameter: 5.5 cm, 22 weeks, 6 days. Head circumference: 20.6 cm, 22 weeks, 5 days. Abdominal circumference: 18.6 cm, 23 weeks, 3 days. Femur length: 3.7 cm, 21 weeks, 6 days. Clinically estimated gestational age: 21 weeks, 3 days. Composite gestational age from present scan: 22 weeks, 5 days. Estimated weight and percentile: 528 grams, 96 percent. Anatomic survey: Neuro: Ventricles are non-dilated at less than 10 mm. Cisterna magna is normal at 3-11 mm. Cerebellum is normal in size and morphology. Nuchal skin fold: Normal at less than 6 mm between 14-21 weeks gestational age. Face: Nose and lips, facial profile are normal. Spine: No evidence for spina bifida. Heart: 4-chambered heart is present, with normal ventricular outflow tracts. Diaphragm: Diaphragm is intact. Stomach: Left-sided stomach is present. Kidneys: No hydronephrosis. Normal is less than 5 mm in 2nd trimester, less than 7 mm in 3rd trimester. Cord: 3-vessel cord has orthotopic insertion. Bladder: Normal in size. Extremities: All 4 extremities identified. IMPRESSION: 1. Single live intrauterine gestation with fetus in vertex presentation. heart rate is 144 beats per minute. Normal amount of amniotic fluid. Normal growth. Estimated weight is at 96 percent. 2. Normal anatomic survey. We strive to produce accurate, complete, and clear reports of imaging services. To assist us in improving patient care, this report was composed using standard report templates and voice recognition software. Therefore, it may contain abnormal punctuation, insertions and/or omissions. Occasional wrong-word or sound-alike substitutions may occur. Though we review the report and make efforts to correct it, we do recommend that the report be read carefully in proper context to recognize any text inaccuracies. Dictated by: Tomás Cardona M.D. on 03/17/2022 at 13:11 Approved by: Tomás Cardona M.D. on 03/17/2022 at 13:13
== END ==
PROVIDERS: Family Provider Family Medicine; PCP Family Medicine; Referring Provider Family Medicine; Visit Provider Family Medicine
DX: Z34.82 Encounter for supervision of other normal pregnancy, second trimester (principal); Z3A.22 22 weeks gestation of pregnancy
CPT/HCPCS: 76811

== ENCOUNTER → 2022-05-26 11:21 | Outpatient (CLI) | payer OTHER, SELFPAY ==
--- NOTE | 2022-05-26 11:22 | DI.US.S_ITS ---
PROCEDURE: US OB FOLLOW UP INDICATIONS: GROWTH OUTSIDE/PRIOR DATING DATA: Last menstrual period (LMP): 10/15/2021. LMP-based estimated date of delivery (TERESA): 07/22/2022. First dating scan (date and location): 12/20/2021. Estimated date of delivery (TERESA) from first dating scan: 07/25/2022. The calculations are made using the working TERESA of 07/25/2022. TECHNIQUE: Real-time scanning was performed of the fetus, with image documentation. Endovaginal scanning: Not performed COMPARISON: None. FINDINGS: A single living intrauterine gestation is present. Presentation: Vertex. Placenta: Placental position is fundal, without previa. Amniotic fluid index: 18.4 cm, normal range is 5-24 cm. Single deepest vertical pocket is 7.1 cm. heart rate: 140 beats per minute. Maternal cervical canal: 4 cm long. Normal lower limit is 2.5 cm. Clinically estimated gestational age: 31 weeks 3 days Estimated gestational age from initial scan: 32 weeks 6 days. Estimated weight 2069 grams, 84th percentile IMPRESSION: Single living intrauterine gestation with size slightly greater than gestational age. Dictated by: Berry Ramesh M.D. on 05/26/2022 at 13:44 Approved by: Berry Ramesh M.D. on 05/26/2022 at 13:45
== END ==
PROVIDERS: Family Provider Family Medicine; PCP Family Medicine; Referring Provider Family Medicine; Visit Provider Family Medicine
DX: Z3A.32 32 weeks gestation of pregnancy; Z36.88 Encounter for antenatal screening for fetal macrosomia
CPT/HCPCS: 76816

== ENCOUNTER → 2022-06-02 13:46 | Outpatient (CLI) | payer OTHER, SELFPAY ==
--- NOTE | 2022-06-07 15:49 | DIAB.GDA ---
Initial Gestational Diabetes Assessment Name: Adele Marcos Date: 06/02/22 Time: 2-315p Dx: Gestational Diabetes Provider: Yobani TERESA: 07/25/22 Weeks: 32 Adele presents for initial GDM visit, accompanied by her 3 y/o son. Reports FH of GDM with mother when with Adele. Denies GDM with last . Endorses larger babies in her family. 2 years with son. LGA with this baby, 96.6%. Endorses son was over 9# and also was LGA. Feels this is more r/t family hx. Endorses high carb intake without hyperglycemia. Reports currently having kitchen renovation which has impeded cooking regularly. Often eats two meals per day and snacks. Wants to increase veggie intake. Diet Recall: 10a: 3 x 8 pancakes with reg syrup and butter grazing/snacks: orange, cereal, yogurt x 1c 7-8p: meat and rice <1c or potatoes x2c 9p: nothing or 2 servings fruit with ice cream OR one fruit Beverages: water 16oz x 3-4, Anthropometrics: Ht: 67 Wt: 250# last OB visit Prepregnancy wt: 222# Physical Activity: walking 1-2x per week for 30-40 min, weather dependent. Self-Monitoring Blood Glucose: Checking FBG and 1 hour pc. Plans to switched to 2 hour. 1 elevated FBG. Few readings for review, just started SMBG. Date Pre Post Pre Post Pre Post HS 2/ 119 2/2 104 99 112 106 2/3 89 116 Diabetes Medications: None Pertinent Labs: Screen 143 mg/dl H ; OGTT: 96H 179, 151, 82 Nutrition Rx: Carbohydrates: Daily: 180-210g Meal: 45-60g lunch and dinner; 30-45g breakfast Snack: 15-30g Fluids: 3-4L Nutrition Diagnosis: Altered nutrition related lab value r/t GDM dx aeb recent OGTT Inconsistent energy intake r/t grazing due to renovations aeb pt report Inadequate fluids r/t increased needs during and limited intake aeb diet recall Physical inactivity r/t weather dependent activity aeb pt report Excessive CHO intake r/t nutrition related knowledge deficit aeb diet recall and pt report Intervention: This participant was very receptive. Provided appropriate educational handouts. Discussed the following topics: GDM pathophysiology and impact of hyperglycemia on mom and baby Risk for T2DM for mom and baby in the future Ways to reduce risk T2DM Plate Method, meal timing, carb counting, pairing macronutrients and spreading out CHO for better BG management Blood glucose goals (FBG: <95 and 1 hour <140 mg/dL or 2 hour <120 mg/dL); importance of checking 4x per day (FBG and pc) Impact of macronutrients on blood glucose Recommended servings for carbohydrates at meals and snacks Brainstormed appropriate meal plan based on her food preferences Role of physical activity and following provider guidelines for safety Fluid recs during Goals: Try to eat q 3-4 hours (try picnic meals Increase veggie intake Use a water bottle and aim for 3L daily Check out online exercises to do at home safely Follow-up: NINOSKA DAN follow-up in one week via phone and two weeks 1:1 Basilia Carballo RDN, NI Certified Diabetes Care and Head Of Product T: [phone] F: [phone] [email or web address] Thank you for this referral
== END ==
PROVIDERS: Absent Provider Family Medicine; Family Provider Family Medicine; PCP Family Medicine; Referring Provider Family Medicine; Visit Provider Family Medicine
DX: O24.419 Gestational diabetes mellitus in pregnancy, unspecified control (principal); Z3A.32 32 weeks gestation of pregnancy; Z71.3 Dietary counseling and surveillance
CPT/HCPCS: 97802

== ENCOUNTER → 2022-06-16 14:37 | Outpatient (CLI) | payer OTHER, SELFPAY ==
--- NOTE | 2022-06-16 18:24 | DIAB.GDFU ---
Addendum entered by Basilia Carballo 06/16/22 18:36: Today's visit was virtual via [employer] platform. Original Note: Follow-up Gestational Diabetes Assessment Name: Adele Marcos Date: 06/16/22 Time: 235-310p Dx: Gestational Diabetes Provider: Yobani TERESA: 07/25/22 Weeks: 34 Adele presents for GDM follow-up. Has made changes to diet this week after having consistent hyperglycemia last week. Has cut out gummy prenatals, switched to capsule. Has cut out most juices. Has increased vegetable and water intake. Diet recall indicates more moderate carb intake for more meals. Scheduled OB appt in two weeks Diet recall: 10a: oatmeal x 1pkt sweetened with egg or cereal x 2c with almond milk 12p: chicken, broccoli, mashed potatoes x 1c; (06/14) shrimp, rice x 1/2c, veggies 5p: same as noon. Sn: orange or soraida or cottage cheese and tangerine or nothing Beverages: water 2.5 L (80oz) and carrot juice (serving size 8-16oz 15-30g CHO) Anthropometrics: Ht: 67 Wt: 250# last OB visit (no new wt today) Prepregnancy wt: 222# Physical Activity: walk 2x per week 30+ min, no exercises. Self-Monitoring Blood Glucose: Week 1 with significant elevations. This week much improved but not much data to evaluate. States she often forgets to check BG in the morning before eating. Set an alarm today as a reminder. May benefit from medication management given [address] messaged provider recent SMB. week 1 Date Pre Post Pre Post Pre Post 06/02 89 116 117 89 2h 2/4 105 147 170 114 chipotle 2/5 96 113 2/6 128 95 180 120 2/7 139 2/8 88 2/9 91 67 129 2/10 87 95 94 100 week 2 Date Pre Post Pre Post Pre Post 06/10 98 128 1h 212 103 81 2/13 103 85 141 1h 214 82 2/15 69 2/16 112 /17 98 Diabetes Medications: None Pertinent Labs: Screen 143 mg/dl H ; OGTT: 96H 179, 151, 82 Nutrition Rx: Carbohydrates: Daily: 180-210g Meal: 45-60g lunch and dinner; 30-45g breakfast Snack: 15-30g Fluids: 3-4L Nutrition Diagnosis: Altered nutrition related lab value r/t GDM dx aeb recent OGTT Inconsistent energy intake r/t grazing due to renovations aeb pt report- improved Inadequate fluids r/t increased needs during and limited intake aeb diet recall - improved Physical inactivity r/t weather dependent activity aeb pt report -in progress Excessive CHO intake r/t nutrition related knowledge deficit aeb diet recall and pt report - improved Intervention: This participant was very receptive. Provided appropriate educational handouts. Discussed the following topics: Recent blood sugar results and impact of food and hormones Review of macronutrient recommendations during Reviewed meal timing and portions Impact of sweetened beverages on BG Physical activity recs and plan Importance of SMBG, especially FBG Goals: Aim for consistent evening snack Check more FBG and after dinner Even if you forget FBG check, take it and make a note of time/food intake Walk 3 days per week Follow-up: NINOSKA DAN follow-up in one week. Concerns for BG levels last week and FBG this week. Messaged OB with report. Basilia Carballo RDN, CDCES Certified Diabetes Care and Surgical Aide T: [phone] F: [phone] [email or web address] Thank you for this referral
== END ==
PROVIDERS: Family Provider Family Medicine; PCP Family Medicine; Referring Provider Family Medicine; Visit Provider Family Medicine
DX: O24.419 Gestational diabetes mellitus in pregnancy, unspecified control (principal); Z3A.34 34 weeks gestation of pregnancy; Z71.3 Dietary counseling and surveillance
CPT/HCPCS: 97803

== ENCOUNTER → 2022-06-23 15:33 | Outpatient (CLI) | payer OTHER, SELFPAY ==
--- NOTE | 2022-06-23 16:20 | DIAB.GDFU ---
Follow-up Gestational Diabetes Assessment Name: Adele Marcos Date: 06/23/22 Time: 230-3p Dx: Gestational Diabetes Provider: Yobani TERESA: 07/25/22 Weeks: 34-35 Hilaria presents today for GDm follow-up virtually via [employer] platform. Reports most lunch and dinners within carb recs. Some breakfasts >45g but without elevated pc BG. No protein with breakfast most mornings. Has not liked eggs recently. Inconsistent with HS snack, but FBG have been in goal. Cake in the house for ?s birthday, but she asked him to get rid of it to reduce intake. Diet recall: 10a: oatmeal x 1pkt sweetened or cereal x 2c with almond milk 12p: leftovers, pot roast, carrots mashed potatoes 1c 5p: same as noon. Ex: chicken and rice x 1c gonzalez peppers +/-Sn: cake recently due to birthday; yogurt OR cheese OR nothing Beverages: water 2.5 L (80oz) and carrot juice (serving size 8-16oz 15-30g CHO) Anthropometrics: Ht: 67 Wt: 250# last OB visit (no new wt today) Prepregnancy wt: 222# Physical Activity: Walking 2x per week. Weather is a barrier. Self-Monitoring Blood Glucose: Much improved BG since first week. Checking FBG and 1 hour, some 2 hour indicated below. A few at 3 hours due to falling asleep. 6 hours after midnight snack had BG of 124 on 06/22. not a true fasting. No medication needed to manage GDM at this time. Date Pre Post Pre Post Pre Post notes 06/17 91 84 2h 120 128 06/18 90 93 96 2h 06/19 83 2h 72 2h 100 06/20 87 105 85 2h 107 06/21 85 79 3h 112 109 06/22 Non fasting 124 68 3 h 106 87 Dinner: pot roast, potatoes, carrots 06/23 81 132 125 Diabetes Medications: None Pertinent Labs: Screen 143 mg/dl H ; OGTT: 96H 179, 151, 82 Nutrition Rx: Carbohydrates: Daily: 180-210g Meal: 45-60g lunch and dinner; 30-45g breakfast Snack: 15-30g Fluids: 3-4L Nutrition Diagnosis: Altered nutrition related lab value r/t GDM dx aeb recent OGTT Inconsistent protein intake r/t not enjoying usual protein options at breakfast aeb diet recall and pt report- new Excessive CHO intake r/t breakfast cereal portions aeb diet recall- new Intervention: This participant was very receptive. Provided appropriate educational handouts. Discussed the following topics: Recent blood sugar results and trends Review of macronutrient recommendations during Protein options for breakfast Benefits, resources, and nutrition for recommendations for nutrition and physical activity recommendations for T2DM risk reduction OGTT at 6-12 weeks Option for checking blood sugars twice per week (goal: fasting <100 mg/dL and 2 hour pc <140 mg/dL) until 6 week check-up HgA1c q 1-3 years. Goals: Aim for consistent evening snack- not met Check more FBG and after dinner- met Even if you forget FBG check, take it and make a note of time/food intake- cont Walk 3 days per week - not met Try adding cashews to oatmeal- new Consider reduction in cereal portion at breakfast- new Continue checking BG- cont recs: OGTT and HgA1c q 1-3 years Follow-up: NINOSKA DAN follow-up prn. Adele seems to managing GDM well with diet at this time. Encouraged her to call with any questions or follow-up needs. Basilia Carballo RDN, NI Certified Diabetes Care and Contact [employer] T: [phone] F: [phone] [email or web address] Thank you for this referral
== END ==
PROVIDERS: Family Provider Family Medicine; PCP Family Medicine; Referring Provider Family Medicine; Visit Provider Family Medicine
DX: O24.419 Gestational diabetes mellitus in pregnancy, unspecified control (principal); Z3A.34 34 weeks gestation of pregnancy; Z71.3 Dietary counseling and surveillance
CPT/HCPCS: 97803

== ENCOUNTER → 2022-06-30 11:13 | Outpatient (CLI) | payer OTHER, SELFPAY ==
[2022-07-01 12:55] LABS: Strep Grp B PCR NEG for Grp B Strep
== END ==
PROVIDERS: Family Provider Family Medicine; PCP Family Medicine; Visit Provider Family Medicine
DX: Z36.85 Encounter for antenatal screening for Streptococcus B (principal)
CPT/HCPCS: 87653

== ENCOUNTER → 2022-07-10 13:17 | Outpatient (CLI) | payer OTHER, SELFPAY ==
--- NOTE | 2022-07-10 13:17 | DI.US.S_ITS ---
PROCEDURE: US OB LIMITED INDICATIONS: growth OUTSIDE/PRIOR DATING DATA: Last menstrual period (LMP): 10/15/2021. LMP-based estimated date of delivery (TERESA): 07/22/2022. First dating scan (date and location): 12/20/2021. Estimated date of delivery (TERESA) from first dating scan: 07/25/2022. The calculations are made using the ultrasound TERESA of 07/25/2022. TECHNIQUE: Real-time scanning was performed of the fetus, with image documentation. COMPARISON: [facility], OB LIMITED, 10/25/2018, 10:49. [facility], OB FOLLOW UP, 05/26/2022, 11:35. FINDINGS: A single living intrauterine gestation is present. Presentation: Vertex. Placenta: Placental position is fundal, without previa. Amniotic fluid index: 16.3 cm, normal range is 5-24 cm. Single deepest vertical pocket is 5.8 cm. heart rate: 137 beats per minute. Maternal cervical canal: Not well seen Clinically estimated gestational age: 39 weeks 0 days Estimated gestational age from initial scan: 37 weeks 6 days Estimated weight 3672 g, 87th percentile. IMPRESSION: Single live intrauterine with gestational age 37 weeks 6 days. Estimated weight is the 87th percentile Dictated by: Sharri Sweeney M.D. on 07/10/2022 at 21:58 Approved by: Sharri Sweeney M.D. on 07/10/2022 at 22:00
== END ==
PROVIDERS: Family Provider Family Medicine; PCP Family Medicine; Referring Provider Family Medicine; Visit Provider Family Medicine
DX: Z36.89 Encounter for other specified antenatal screening (principal); Z3A.37 37 weeks gestation of pregnancy
CPT/HCPCS: 76815

== ENCOUNTER 2022-07-11 15:34 | Inpatient (IN) | payer OTHER, SELFPAY ==
--- NOTE | 2022-07-11 18:04 | PM.OBHP.IH.1 ---
OB HPI Date/Time Date of admission: 07/11/22 Date Patient Seen: 07/11/22 Time Patient Seen: 18:05 History of Present Condition Chief complaint: Observation TERESA Calculator Estimated Delivery Date Method Current WG Current Estimate 07/25/22 Manual 38w 1d Final TERESA - CHUCK Other Estimates 07/22/22 LMP (Certain) 38w 4d 07/25/22 Ultrasound #1 38w 1d Estimated Gestational Age (weeks): 38w0d : 2 Para: 1 Narrative: Pt is a 32yo at 38w0d who presented with leaking fluid at 3am. She then felt a larger gush at 4:45am. She denies any vaginal bleeding or painful contractions. She has been feeling her baby move regularly. Her was complicated by GDMA1 with excellent blood sugar control. LGA fetus that had improved to the 87th percentile. care: good care, initiated at week # (13) and pounds weight gain (32) Dating criteria OB: LMP confirmed by 1st trimester US Ultrasounds: normal 1st trimester US and normal mid trimester US Obstetrical complications: gestational diabetes Medical complications OB: none Preadmission Labs Last OB Lab Results: Blood Type O Positive 07/11/22 20:25 Antibody Screen Negative 07/11/22 20:25 Hematocrit 33.7 % (36-46) L 07/11/22 20:25 Hemoglobin 11.2 g/dL (12.0-16.0) L 07/11/22 20:25 Group B Streptococcus (PCR) Neg for grp b strep 06/30/22 11:13 Glucose Tolerance Testing: Fasting (96), 1 hr (179), 2 hr (151) and 3 hr (82) -: Chlamydia screen: negative, Gonorrhea screen: negative and Urine: negative Genetic Screens: Cell-free DNA: Normal External Labs -: HBsAG: negative, HIV: negative, RPR/VDLR: negative and Urine: negative -: Rubella: immune and Varicella: immune HCAB: negative Prior (ies) Past Pregnancies Del. Date GA/Weeks Labor Lgth Wt Sex Route Outcome Anesthesia Place Delv Breastfeed Preg Comp Name 10/28/18 41.4 11 9 lb 8 oz Male vaginal live - full term epidural IH 2 years post-dates induction Donnell Evaluation Evaluation Baseline heart rate: 125 Variability: Moderate (11-25) monitor accelerations: Present Monitor Decelerations: Absent Uterine Contraction Intensity: Mild Status: Category l Dilation (cm): 2 station: -4 Position of cervix: anterior Consistency: soft [facility] Medical History Acne (~2005) Anemia (~2007) Asthma (~2003) HSV-1 infection (~2011) Painful menstrual periods (~1999) Surgical History No pertinent past surgical history Two vessel umbilical cord, delivered Family History Mother Diabetes mellitus Hypertension Gestational diabetes History of heart disease Hyperlipidemia Father Cerebral aneurysm Grandmother Mental health problem Grandmother Congestive heart failure Grandfather History of heart disease Grandfather No problems noted. Brother Stomach cancer Sister HIV disease AIDS Social History marital status: number of children: 1 household members: spouse and children lives independently: Yes housing: house pets and animals: Yes (1 dog ) education level: college (Associate's degree) occupational status: employed and student current occupational exposures/hazards: No special michelle needs: No travel history: over 6 months ago seatbelt use: always water heater temp set < 120 deg: Yes working smoke detector in home: Yes fire extinguisher in home: Yes carbon monox detector in home: Yes firearms in home: Yes firearms unloaded and locked: No (they are kept up and out of reach.) do you feel safe at home: Yes Smoking Status: Never smoker second hand exposure: No alcohol intake: never substance use type: does not use during the past year weight has: other (fluctuating, has been intentionally losing weight recently.) well-balanced diet: about half the time daily servings fruits/ve-4 (mostly fruit, working on increasing veggies) caffeine: No Type(s) of exercise: none and walking (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) Meds Home Medications and Allergies Home Medications Medication Instructions Recorded Confirmed Type prenat.vits,kierra,syv-pjdh-oeyai 1 tab PO DAILY 01/30/22 07/11/22 History blood sugar diagnostic #50 ea 05/26/22 07/11/22 Rx blood-glucose meter #1 ea 05/26/22 07/11/22 Rx lancets #100 ea 05/26/22 07/11/22 Rx Allergies Allergy/AdvReac Type Severity Reaction Status Date / Time No Known Drug Allergies Allergy Verified 07/07/22 12:23 OB Exam Narrative Exam Narrative: Gen: NAD, sitting comfortably in bed, appears well CV: RRR, no murmurs Resp: clear to auscultation bilaterally Abd: soft, nontender, gravid Ext: no edema Objective Labs 07/11/22 20:25 Assessment and Plan Assessment and Plan Assessment and Plan narrative: 32yo at 38w0d here with PROM. complicated by GDMA1 with excellent control. GBS negative, Rh positive. Pt did have one variable decel with a stronger contraction, however not recurrent. Kala at most every 20 minutes. - Expectant management, anticipate - Start pitocin, titrate as tolerated. Will monitor FHT closely for recurrent variables, if occurring plan for IUPC and amnioinfusion. - GBS negative, no prophylaxis indicated - FHT overall reassuring. Will monitor closely as above - Epidural for pain control when desired
[2022-07-11] MEDS: LACTATED RINGERS 1,000 ML 100 ML IV (20:25)
[2022-07-11 20:47] LABS: Add Manual Diff / Slide Review NO; Basophils Absolute Auto 0 /uL (0-100); Basophils Percent Auto 0.4 % (0-2); Eosinophils Absolute Auto 100 /uL (0-450); Eosinophils Percent Auto 0.9 % (2-4); Hematocrit 33.7 % (36-46); Hemoglobin 11.2 g/dL (12.0-16.0); Lymphocytes Absolute Auto 3300 /uL (1100-4500); Lymphocytes Percent Auto 41.5 % (25-40); Mean Corpuscular HGB Conc 33.4 % (30-36); Monocytes Absolute Auto 500 /uL (0-900); Monocytes Percent Auto 5.9 % (3-14); Neutrophils Absolute Auto 4000 /uL (1500-7000); Neutrophils Percent Auto 51.3 % (50-75); Platelet Count 383 X10^3/uL (150-400); Red Blood Cell Count 3.74 X10^6/uL (4.0-5.2); Red Cell Distribution Width 15.1 % (11.6-14.8); White Blood Cell Count 7.9 X10^3/uL (4.5-11.0)
[2022-07-11] MEDS: OXYTOCIN PREMIX 30 UNIT/500 ML PLAST..BAG IV (22:25)
[2022-07-12] MEDS: FENT 2MCG/ML BUPIV 0.125% EPI 200 MCG/100 ML PLAST..BAG 8 MCG EPIDURAL (02:22)
--- NOTE | 2022-07-12 03:52 | PM.OBPRVD ---
Labor & Delivery Delivery date: 07/12/22 Cervical ripening method: none Induction method: per pitocin protocol Delivery monitor: external FHT and external uterine Route of delivery: Episiotomy description: None L&D Laceration Description: None Quantitative Blood Loss: 100 Anesthesia Type: Epidural Complications: None Narrative: PROCEDURE: at 38w0d presented with PROM at 3am with clear fluid and was admitted to Labor and Delivery. She received Pitocin for induction of labor. The patient progressed through the 1st stage over 2 hours. The patient progressed through the 2nd stage over 1 push and delivered a viable male with APGARs 9/9 at 3:28 via . Nuchal cord x1 was reduced at the perineum. The cord was cut and clamped after it stopped pulsating. The placenta delivered with gentle cord traction, and appeared complete. The perineum and vagina were inspected with no lacerations. Needle and sponge counts were correct.? The vagina was inspected and no items were left in situ. Adele was doing well with Lula, her and at bedside. PREPROCEDURE DIAGNOSIS: Intrauterine at 38w1d GDMA1 GBS negative RH positive POSTPROCEDURE DIAGNOSIS: Intrauterine at 38w1d, delivered Same as preprocedure [place] Baby 1: Infant gender: Male Presentation: vertex Position: Left Occiput Anterior Placenta delivery description: Spontaneous Cord Vessel Description: 3 Vessels and Nuchal Cord score (1 min): 9 score (5 min): 9 weight: 8 lb 1.385 oz Plan for aftercare: Routine care
[2022-07-12] MEDS: IBUPROFEN 600 MG TABLET PO ×2 (12:49→20:56)
--- NOTE | 2022-07-12 14:11 | PM.OBDS.1 ---
Discharge Providers Provider Date of admission: 07/11/22 15:34 Discharge Date: 07/12/22 Primary care physician: Anika Jean MD Consults: 07/13/22 03:51 Consult to [employer] Routine Comment: Discharge provider: Martha Hilton MD Summary Hospital Course Date Patient Seen: 07/12/22 Diagnoses: Intrauterine at 38w1d GDMA1 GBS negative RH positive Hospital Course: The pt presented with PROM. She was induced with pitocin. She had an epidural for pain control. She progressed to complete and had an of a viable baby boy without complications. , there were no complications. At the time of discharge she was voiding, ambulating, and passing flatus without difficulty. Her lochia was decreasing appropriately. Her pain was well controlled. She will f/u in 6 weeks for check. She would like OCPs for contraception. Peripartum Data Infant Delivery Method: Natural Vaginal Laceration Description: None Episiotomy description: None Procedures: Spontaneous vaginal delivery complications: none 1: Gender: Male Disposition of : home Discharge Diagnosis (1) Gestational diabetes: Status: Acute (2) Spontaneous vaginal delivery: Status: Acute Status at Discharge Cognitive/behavioral status at discharge: oriented Functional status at discharge: independent ambulation Overall status at discharge: patient is progressing back to baseline Time Spent with Patient Time attestation: Total time spent providing and/or coordinating discharge services: Objective Labs 07/11/22 20:25 Labs: Laboratory Results - last 24 hr 07/11/22 07/11/22 20:25 20:25 WBC 7.9 RBC 3.74 L Hgb 11.2 L Hct 33.7 L MCV 90.0 MCH 30.0 MCHC 33.4 RDW 15.1 H Plt Count 383 Neut % (Auto) 51.3 Lymph % (Auto) 41.5 H [place] % (Auto) 5.9 Eos % (Auto) 0.9 L Baso % (Auto) 0.4 Neut # (Auto) 4000 Lymph # (Auto) 3300 [place] # (Auto) 500 Eos # (Auto) 100 Baso # (Auto) 0 Blood Type O Positive Antibody Screen Negative Exam Narrative Exam Narrative: Gen: NAD, sitting comfortably in bed, appears well CV: RRR, no murmurs Resp: clear to auscultation bilaterally Abd: soft, appropriately tender, fundus firm and below the umbilicus, nondistended Ext: no edema Discharge Plan Discharge Plan Patient Disposition: Home Discharge orders & Medications Prescriptions: New acetaminophen 325 mg Tablet 650 mg PO Q6HR PRN (Reason: Pain, Mild (1-3)) Qty: 30 0RF docusate sodium 100 mg Capsule 100 mg PO DAILY Qty: 30 0RF ibuprofen 600 mg Tablet 600 mg PO Q6HR PRN (Reason: Pain, Mild (1-3)) Qty: 30 0RF Continued prenat.vits,kierra,dax-czsh-nqzas Tablet 1 tab PO DAILY Discontinued (DME) blood-glucose meter Misc See Rx Instructions .Route Qty: 1 0RF Rx Instructions: As directed (DME) blood sugar diagnostic Strip See Rx Instructions .Route Qty: 50 1RF Rx Instructions: As directed, test once daily (DME) lancets Misc See Rx Instructions .Route Qty: 100 0RF Rx Instructions: As directed, test once daily Follow up/Referrals: Martha Hilton MD [Physician] - 6 Weeks Anika Jean MD [Primary Care Provider] - Diet/Activity/Treatments Diet: Diet as Tolerated and Regular Skin/Wound/Dressing Care Report to your healthcare provider any signs of infection, such as:: chills, fever, increased pain and unusual drainage Visit Report/Discharge Packet Instructions: DI for Labor and Delivery, Vaginal Stand Alone Forms: Patient Portal/API, Stroke Signs & Symptoms Discharge Data Primary Care Provider: Anika Jean
[2022-07-12] MEDS: LANOLIN OINT 7 GM 1 APPLIC TOP (21:40)
[2022-07-12] MEDS: DERMOPLAST SPRAY 20% 60 ML 1 SPRAY TOP (21:40)
== END 2022-07-12 22:10 | disposition home or self-care (01) | DRG 807 ==
PROVIDERS: Admitting Provider Family Medicine; Family Provider Family Medicine; PCP Family Medicine; Referring Provider Family Medicine; Visit Provider Family Medicine
DX: O42.02 Full-term premature rupture of membranes, onset of labor within 24 hours of rupture (principal); Z37.0 Single live birth; Z3A.38 38 weeks gestation of pregnancy; O24.429 Gestational diabetes mellitus in childbirth, unspecified control; O76 Abnormality in fetal heart rate and rhythm complicating labor and delivery
CPT/HCPCS: 36415; 59050; 59400; 85025; 86850; 86900; 86901; G0379; J2590

== ENCOUNTER → 2022-09-11 07:53 | Outpatient (CLI) | payer OTHER, SELFPAY ==
[2022-09-11 09:16] LABS: Glucose Fasting 93 mg/dL (70-100)
[2022-09-11 10:38] LABS: Glucose Tol Interpretation INTERPRETATION
[2022-09-11 10:42] LABS: Glucose 1 Hour 104 mg/dL (70-170)
[2022-09-11 11:28] LABS: Glucose 2 Hour 110 mg/dL (70-140)
== END ==
PROVIDERS: Family Provider Family Medicine; PCP Family Medicine; Referring Provider Family Medicine; Visit Provider Family Medicine
DX: O24.419 Gestational diabetes mellitus in pregnancy, unspecified control (principal)
CPT/HCPCS: 36415; 82951; 82952